=== PATIENT | female | born 1980 | race Native Hawaiian/Other Pacific Islander ===

== ENCOUNTER 2022-03-07 08:32 | Outpatient (CLI) | payer BC | END 2022-03-07 21:33 | disposition home or self-care (01) | LOC: MAMMO 08:32 | PROVIDERS: ATTEND Obstetrics & Gynecology | DX: Z12.31 Encounter for screening mammogram for malignant neoplasm of breast (principal) ==

== ENCOUNTER 2023-03-21 08:29 | Outpatient (CLI) | payer BC | END 2023-03-21 17:00 | disposition home or self-care (01) | LOC: MAMMO 08:29 | PROVIDERS: ATTEND Physician Assistant | DX: Z12.31 Encounter for screening mammogram for malignant neoplasm of breast (principal) ==